=== PATIENT | male | born 1940 | race Two or more races ===

== ENCOUNTER → 2018-03-09 | Emergency (ER) | payer OTHER ==
[~2018-03-09] VITALS: Ht 170.2 cm; Wt 90.7 kg
[~2018-03-09] MED LIST: ALUMINUM SULFATE TOP; AMLODIPINE BESYL5 MG; AVALIDE 300-121 EACH; CALCIUM ACETATE TOP; FLUCONAZOLE150 MG PO; LIPITOR20 MG
== END | disposition home or self-care (01) ==
LOC: ER 10:52
DX: N48.89 Other specified disorders of penis (principal)

== ENCOUNTER 2018-03-11 07:23 | Outpatient (CLI) | payer OTHER | END 2018-03-11 07:25 | disposition home or self-care (01) | LOC: SONOGRAMA 07:23 | DX: N20.0 Calculus of kidney (principal) ==

== ENCOUNTER 2018-07-25 03:57 | Emergency (ER) | payer OTHER ==
[~2018-07-25] VITALS: Ht 170.2 cm; Wt 90.7 kg
== END 2018-07-25 10:02 | disposition home or self-care (01) ==
LOC: ER 03:57 → EDBD 04:01 → ER 04:01
DX: J44.9 Chronic obstructive pulmonary disease, unspecified (principal)

== ENCOUNTER → 2019-03-24 | Outpatient (CLI) | payer OTHER | END | disposition home or self-care (01) | LOC: TOM 09:34 | DX: R10.11 Right upper quadrant pain (principal) | CPT/HCPCS: 74177; Q9965 ==

== ENCOUNTER 2021-06-10 13:09 | Outpatient (CLI) | payer OTHER | END 2021-06-10 13:25 | disposition home or self-care (01) | LOC: LAB 13:09 | PROVIDERS: ATTEND Radiology Diagnostic Radiology | DX: N28.89 Other specified disorders of kidney and ureter (principal) ==

== ENCOUNTER 2021-06-11 07:09 | Outpatient (CLI) | payer OTHER | END 2021-06-11 07:15 | disposition home or self-care (01) | LOC: TOM 07:09 | PROVIDERS: ATTEND Urology | DX: N28.89 Other specified disorders of kidney and ureter (principal); N28.1 Cyst of kidney, acquired | CPT/HCPCS: 74177; Q9965 ==

== ENCOUNTER 2023-05-11 10:53 | Outpatient (CLI) | payer OTHER | END 2023-05-11 10:55 | disposition home or self-care (01) | LOC: SONOGRAMA 10:53 | PROVIDERS: ATTEND Urology | DX: N40.1 Benign prostatic hyperplasia with lower urinary tract symptoms (principal) ==